=== PATIENT | female | born 1980 | race Caucasian/White ===

== ENCOUNTER 2020-03-26 23:41 | Inpatient (IN) ==
--- OUTSIDE RECORDS SUMMARY | 2020-03-26 23:45 | External Medical Summary | Continuity of Care Document ---
:1980 Author Name Jackie Baxter Address Unavailable Unavailable , Care Team Providers Name Role Phone Joaquina Kothari PA-C Unavailable [email or web address] Moreno Pink DO Unavailable [email or web address] Alfonso CULVER Unavailable Unavailable Unavailable Unavailable Unavailable Assessments Assessed Problems:Hernia, hiatalReactive airway disease Problems Plantar fasciitis (728.71) (M72.2) Heel spur (726.73) (M77.30) Esophageal reflux disease (530.81) (K21.9) Hernia, hiatal (553.3) (K44.9) Reactive airway disease (493.90) (J45.909) Chronic cough (786.2) (R05) Allergies and Adverse Reactions No Known Drug Allergies (Allergy) Latex (Allergy) Medications Flonase 50 MCG/ACT SUSP; USE 2 SPRAYS IN EACH NOSTRIL DAILY Refills: 0 Ventolin HFA AERS Refills: 0 Katlin Allergy 180 MG Oral Tablet; TAKE 1 TABLET DAILY N EEDED. Refills: 0 Gabapentin 300 MG TABS; TAKE 1 TABLET 3 TIMES DAILY. Refills: 0 Omeprazole 40 MG Oral Capsule Delayed Re lease; TAKE 1 CAPSULE Daily 1/2 hour prior to breakfast MILEY Kothari Start: 13-Mar-2015 Quantity: 30 Refills: 5 Singulair 10 MG Oral Tablet; TAKE 1 TABLET DAILY. XOCHITL Kothari 30 Tablet Bottle Quantity: 1 Refills: 3 Procedures History of Section Status: Comp leted History of Appendectomy Status: Complete d History of Total Abdominal Hysterectomy With Removal Of Both Status: Completed Ovaries History of Oral Surgery Tooth Extraction Status: Completed History of Sinus Surgery Status: Complet ed History of Neuroplasty Decompression Median Nerve At Carpal Status: Completed Tunnel Immunizations Immunizations not documented Family History Sister Family history of skin cancer (V16.8) (Z80.8) Status: Active Family history of diabetes mellitus (V18.0) (Z83.3) Status: Active uncle Family history of malignant neoplasm of prostate (V16. 42) (Z80.42) Status: Active Grandfather Family history of lung cancer (V16.1) (Z80.1) Status: Active Mother Family history of diabetes mellitus (V18.0) (Z83.3) Status: Active Grandfather Family history of diabetes mellitus (V18.0) (Z83.3) Status: Active Social History - Smoking Status Never smoked tobacco Interventions Follow-ups/ReferralsFollow-up as needed; Done: 10 Jul 2015Discussion/Summary Impressions 1. Reactive airways disorder. This most likely is exacerbated by reflux.2. GERD under good control3. ObesityPlan 1. Continue with anti-reflux regimen and institute a good exercise program and weight reduction, discussed at great length.2. Use the albuterol 2 puffs 4 times a day as needed.3. Return to see me as needed. Plan of Treatment Planned Observations Planned Goals not documented Results No Known Results Results not documented Encounters Appointment; Mika Pink DO 10-Jul-2015 11:15 Encounter Diagnosis: Problem not documented
--- OUTSIDE RECORDS SUMMARY | 2020-03-26 23:45 | External Medical Summary | Continuity of Care Document ---
:1980 Author Name Jackie Baxter Address Unavailable Unavailable , Care Team Providers Name Role Phone Joaquina Kothari PA-C Unavailable [email or web address] Moreno Pink DO Unavailable [email or web address] Alfonso CULVER Unavailable Unavailable Unavailable Unavailable Unavailable Assessments Assessed Problems:Hernia, hiatalReactive airway disease Problems Heel spur (726.73) (M77.30) Plantar fasciitis (728.71) (M72.2) Chronic cough (786.2) (R05) Esophageal reflux disease (530.81) (K21.9) Hernia, hiatal (553.3) (K44.9) Reactive airway disease (493.90) (J45.909) Allergies and Adverse Reactions No Known Drug Allergies (Allergy) Latex (Allergy) Medications Singulair 10 MG Oral Tablet; TAKE 1 TABLET DAILY. XOCHITL Kothari 30 Tablet Bottle Quantity: 1 Refills: 3 Katlin Allergy 180 MG Oral Tablet; TAKE 1 TABLET DAILY N EEDED. Refills: 0 Ventolin HFA AERS Refills: 0 Gabapentin 300 MG TABS; TAKE 1 TABLET 3 TIMES DAILY. Refills: 0 Flonase 50 MCG/ACT SUSP; USE 2 SPRAYS IN EACH NOSTRIL DAILY Refills: 0 Omeprazole 40 MG Oral Capsule Delayed Re lease; TAKE 1 CAPSULE Daily 1/2 hour prior to breakfast MILEY Kothari Start: 13-Mar-2015 Quantity: 30 Refills: 5 Procedures History of Section Status: Comp leted History of Appendectomy Status: Complete d History of Total Abdominal Hysterectomy With Removal Of Both Status: Completed Ovaries History of Oral Surgery Tooth Extraction Status: Completed History of Sinus Surgery Status: Complet ed History of Neuroplasty Decompression Median Nerve At Carpal Status: Completed Tunnel Immunizations Immunizations not documented Family History Mother Family history of diabetes mellitus (V18.0) (Z83.3) Status: Active Sister Family history of diabetes mellitus (V18.0) (Z83.3) Status: Active Family history of skin cancer (V16.8) (Z80.8) Status: Active Grandfather Family history of diabetes mellitus (V18.0) (Z83.3) Status: Active Grandfather Family history of lung cancer (V16.1) (Z80.1) Status: Active uncle Family history of malignant neoplasm of prostate (V16. 42) (Z80.42) Status: Active Social History - Smoking Status [...]
[2020-03-27] MEDS ORDERED: DEXAMETHASONE SOD INJ 10 MG/ML VIAL IV ONE (00:03)
[2020-03-27] MEDS ORDERED: ONDANSETRON INJ 2 MG/ML 2 ML VIAL IV STA (00:03)
[2020-03-27] MEDS ORDERED: ALBUTEROL HFA 8 GM INHALER INH ONE (00:03)
--- NOTE | 2020-03-27 00:25 | Emergency Department Note ---
History of Present Illness General Chief complaint: Illness Stated complaint: COVID+,VOMITING,DIARRHEA,HEADACHES,TEMP Time Seen by Provider: 03/26/20 23:50 History of Present Illness This 40-year-old presents to the ER complaining of cough, congestion, nausea, vomiting who tested positive for Covid last week Location: Generalized Quality: Achy Severity: Moderate Duration: Past week Timing: Symptom started a week ago Context: Symptoms got worse and patient came in Modifying factors: better with rest; worse with activity Patient states she also has asthma and prediabetes. Patient denies chest pain, neck stiffness, urinary symptoms. She complains of loss of taste, loss of smell, fever, chills, flulike illness. Home Medications Medication Instructions Recorded Confirmed Type albuterol sulfate 2 puff INHALATION QID PRN 03/27/20 03/27/20 History budesonide-formoterol [Symbicort] 2 puff INHALATION BID 03/27/20 03/27/20 History meloxicam 15 mg PO HS 03/27/20 03/27/20 History montelukast 10 mg PO QAM 03/27/20 03/27/20 History omeprazole 20 mg PO BID 03/27/20 03/27/20 History Allergies Allergy/AdvReac Type Severity Reaction Status Date / Time latex Allergy Unknown Rash Verified 03/27/20 01:16 dust mites Allergy Congested Uncoded 03/27/20 01:16 Past Med/Surg History Medical History Asthma Diabetes Surgical History H/O: hysterectomy Social History Smoking Status: Never smoker Feels Safe at Home: Yes Review of Systems A total of 10 systems reviewed and were otherwise negative Physical Exam Vital Signs Vital Signs - 24 hr 03/26/20 23:55 03/27/20 00:02 03/27/20 00:30 Temperature 37.1 C Temperature Source Oral Pulse Rate 92 H Respiratory Rate 17 Respiratory Effort / Characteristics Respiratory Depth Normal Blood Pressure 151/98 H Blood Pressure Mean 115 Pulse Oximetry 88 L 88 L 96 Oxygen Delivery Method Room Air Nasal Cannula Oxygen Flow Rate 0 2 Sepsis Recent Fever Within 48 Hours No Sepsis New/Unexplained Change in Mental Status No Sepsis Action Taken by Nursing No Action Required Fraction of Inspired Oxygen - Titration 2 Pulse Oximetry Post Tiitration 94 03/27/20 00:41 03/27/20 00:56 03/27/20 01:00 Temperature Temperature Source Pulse Rate 85 83 Respiratory Rate 24 24 Respiratory Effort / Characteristics Non-Labored Respiratory Depth Blood Pressure 150/93 H 161/91 H Blood Pressure Mean 102 112 Pulse Oximetry 94 96 97 Oxygen Delivery Method Nasal Cannula Nasal Cannula Oxygen Flow Rate 2 2 Sepsis Recent Fever Within 48 Hours Sepsis New/Unexplained Change in Mental Status Sepsis Action Taken by Nursing Fraction of Inspired Oxygen - Titration Pulse Oximetry Post Tiitration VITALS: Vitals are noted on the nurse's note and reviewed by myself. Vital signs hypoxic which improved on nasal cannula. GENERAL: White female mildly ill-appearing. SKIN: The skin was without rashes, erythema, edema, or bruising. There is no tenting of the skin. Capillary reflex less than 2 seconds. HEAD: Normocephalic atraumatic. EARS: External auditory canals clear, tympanic membranes pearly rush without erythema or effusion bilaterally. EYES: Pupils equal round and reactive to light and accommodation. Conjunctivae without injection, sclerae without icterus. Extraocular movements intact. NOSE: Patent, turbinates without inflammation or discharge. No sinus tenderness. MOUTH: Mucous membranes mildly dry. Pharynx without erythema or exudate. Uvula midline. Airway patent. Tongue does not deviate. NECK: Supple without nuchal rigidity. No lymphadenopathy. No thyromegaly. Cervical spine is nontender. No JVD. HEART: Regular rate and rhythm LUNGS: Mild diffuse end expiratory wheezes, No retractions or accessory muscle use. ABDOMEN: Positive bowel sounds x 4. Normal tympanic percussion. Soft, nontender, without masses or organomegaly. Jiménez sign negative. No guarding or rebound tenderness. No CVA tenderness MUSCULOSKELETAL: No muscle atrophy, erythema, or edema noted. NEURO: Patient was alert and oriented to person place and time. Normal sens ation to light and sharp touch. No focal neurological deficits. Course Administered Medications Discontinued Medications Albuterol (Albuterol Hfa 8 Gm Inhaler) 2 puffs INH NOW ONE Stop: 03/27/20 00:04 Last Admin: 03/27/20 00:44 Dose: 2 puffs Documented by: [id number] Dexamethasone (Dexamethasone Sod Inj 10 Mg/Ml Vial) 6 mg IV NOW ONE Stop: 03/27/20 00:04 Last Admin: 03/27/20 00:44 Dose: 6 mg Documented by: [id number] Ondansetron HCl (Ondansetron Inj 2 Mg/Ml 2 Ml Vial) 4 mg IV NOW STA Stop: 03/27/20 00:04 Last Admin: 03/27/20 00:43 Dose: 4 mg Documented by: [id number] Medical Decision Making Medical Records Attestation: I reviewed the patient's medical records. Home Medications Current Medication List: was personally reviewed by me Laboratory Data Attestation: I reviewed the patient's lab results. Result diagrams: 03/27/20 00:27 03/27/20 00:27 Lab Results 03/27/20 03/27/20 03/27/20 Range/Units 00:27 00:27 00:27 WBC 4.90 (4.8-10.8) K/uL RBC 5.08 (4.2-5.4) M/uL Hgb 13.4 (12.0-16.0) g/dL Hct 41.9 (37-47) % MCV 82.5 (80-100) fL MCH 26.4 (25-34) pg MCHC 32.0 (32-36) g/dL RDW Std Deviation 46.1 (36.4-46.3) fL RDW Coeff of Darren 15.1 H (11.5-14.5) % Plt Count 255 (130-400) K/uL MPV 10.4 (7.4-10.4) fL Immature Gran % (Auto) 0.2 % Neut % (Auto) 71.6 % Lymph % (Auto) 23.5 % [place] % (Auto) 4.5 % Eos % (Auto) 0.0 % Baso % (Auto) 0.2 % Neut # (Auto) 3.51 (1.4-6.5) K/uL Lymph # (Auto) 1.15 L (1.2-3.4) K/uL [place] # (Auto) 0.22 (0.11-0.59) K/uL Eos # (Auto) 0.00 (0-0.5) K/uL Baso # (Auto) 0.01 (0-0.2) K/uL Immature Gran # (Auto) 0.01 (0.00-0.02) K/uL PT 11.0 (9.0-12.0) Seconds INR 1.0 (0.9-1.1) APTT 28.4 (21.0-31.0) Seconds PTT Ratio 1.0 ABG pH ABG pCO2 ABG pO2 ABG HCO3 ABG O2 Saturation ABG Base Excess Silvano Test Barometric Pressure Oxygen Given Sodium 138 (136-145) mmol/L Potassium 3.5 (3.5-5.1) mmol/L Chloride 104 (98-107) mmol/L Carbon Dioxide 27 (21-32) mmol/L Anion Gap 7.0 (3-11) BUN 14 (7-18) mg/dl Creatinine 1.01 (0.6-1.2) mg/dl Est Cr Clr Drug Dosing 101.6 ml/min Est GFR ( Amer) 79.5 Est GFR (Non-Af Amer) 68.6 BUN/Creatinine Ratio 14.1 (10-20) Glucose 103 H (70-99) mg/dl Lactate (0.4-2.0) mmol/L Calcium 8.8 (8.5-10.1) mg/dl Magnesium 2.2 (1.8-2.4) mg/dl Total Bilirubin 0.5 (0.2-1) mg/dl AST 44 H (15-37) U/L ALT 36 (12-78) U/L Alkaline Phosphatase 101 (45-117) U/L Troponin I < 0.015 (0-0.045) ng/ml Total Protein 8.5 H (6.4-8.2) gm/dl Albumin 3.7 (3.4-5.0) gm/dl Globulin 4.8 H (2.5-4.0) gm/dl Albumin/Globulin Ratio 0.8 L (0.9-2) 03/27/20 03/27/20 Range/Units 00:27 01:04 WBC (4.8-10.8) K/uL RBC (4.2-5.4) M/uL Hgb (12.0-16.0) g/dL Hct (37-47) % MCV (80-100) fL MCH (25-34) pg MCHC (32-36) g/dL RDW Std Deviation (36.4-46.3) fL RDW Coeff of Darren (11.5-14.5) % Plt Count (130-400) K/uL MPV (7.4-10.4) fL Immature Gran % (Auto) % Neut % (Auto) % Lymph % (Auto) % [place] % (Auto) % Eos % (Auto) % Baso % (Auto) % Neut # (Auto) (1.4-6.5) K/uL Lymph # (Auto) (1.2-3.4) K/uL [place] # (Auto) (0.11-0.59) K/uL Eos # (Auto) (0-0.5) K/uL Baso # (Auto) (0-0.2) K/uL Immature Gran # (Auto) (0.00-0.02) K/uL PT (9.0-12.0) Seconds INR (0.9-1.1) APTT (21.0-31.0) Seconds PTT Ratio ABG pH Cancelled ABG pCO2 Cancelled ABG pO2 Cancelled ABG HCO3 Cancelled ABG O2 Saturation Cancelled ABG Base Excess Cancelled Silvano Test Cancelled Barometric Pressure Cancelled Oxygen Given Cancelled Sodium (136-145) mmol/L Potassium (3.5-5.1) mmol/L Chloride (98-107) mmol/L Carbon Dioxide (21-32) mmol/L Anion Gap (3-11) BUN (7-18) mg/dl Creatinine (0.6-1.2) mg/dl Est Cr Clr Drug Dosing ml/min Est GFR ( Amer) Est GFR (Non-Af Amer) BUN/Creatinine Ratio (10-20) Glucose (70-99) mg/dl Lactate 1.8 (0.4-2.0) mmol/L Calcium (8.5-10.1) mg/dl Magnesium (1.8-2.4) mg/dl Total Bilirubin (0.2-1) mg/dl AST (15-37) U/L ALT (12-78) U/L Alkaline Phosphatase (45-117) U/L Troponin I (0-0.045) ng/ml Total Protein (6.4-8.2) gm/dl Albumin (3.4-5.0) gm/dl Globulin (2.5-4.0) gm/dl Albumin/Globulin Ratio (0.9-2) Imaging Data Attestation: I personally reviewed and interpreted this imaging study as follows: MDM Narrative Prior records/ancillary studies reviewed. Triage Nursing notes reviewed. Additional history obtained from nursing. The patient's history was concerning for cold symptoms who tested positive for Covid Differential diagnosis: Etiologies such as viral syndrome, otitis, pharyngitis, pneumonia, influenza, meningitis, urinary tract infection, sepsis, bacteremia, as well as others were entertained. Physical examination: As above ER treatment provided: An order was placed for continuous cardiac monitoring. The monitor shows a rate of 60-100 with a sinus rhythm. IV fluids, Zofran, ice chips On reassessment the patient felt better. Diagnostics interpreted by me: ECG: Ordered for dyspnea EKG: Normal sinus, normal intervals, no acute ST-T wave changes. Impression normal sinus rhythm interpreted by myself I think arrhythmia is unlikely. EKG shows normal sinus rhythm with no interval abnormalities such as QT prolongation or WPW. There are no findings to suggest Brugada syndrome. Cardiac monitoring in the emergency department reveals no ta chycardic or bradycardic dysrhythmia. Hypertrophic cardiomyopathy was considered but there are no clear historical elements pointing toward this. EKG is not suggestive. The QRS voltage is not extremely large and there are no suggestive Q waves. The labs revealed no worrisome leukocytosis, negative lactic acid ABG reviewed Blood cultures pending Imaging studies: Chest x-ray concerning for bilateral patchy infiltrates concerning for Covid my interpretation. No free air or pneumothorax per my interpretation. Consultation: A consultation was placed with Dr. Howard. The case was discussed and diagnostics were reviewed. The patient was evaluated in the ER for further treatment. This appears to be consistent with Covid with low O2 sats. Medicine was consulted. Patient will be admitted. Patient's oxygen came up with nasal cannula. She was hydrated as above. She is agreeable treatment plan of admission. By the evaluation outlined above emergent etiologies such as otitis, pharyngitis, meningitis, urinary tract infection, as well as others were deemed relatively unlikely. The pt informed about the findings as listed above. All questions were answered and pleased with the treatment. The chart was completed utilizing Dragon Speech voice recognition software. Grammatical errors, random word insertions, pronoun errors, and incomplete sentences are an occassional consequence of this system due to software limitations, ambient noise, and hardware issues. Any formal questions or concerns about the content, text, or information contained within the body of this dictation should be directly addressed to the physician learning and development assistant for clarification. Impression & Plan COVID-19 virus infection Discharge Plan Visit Data Chief Complaint: Illness Stated Complaint: COVID+,VOMITING,DIARRHEA,HEADACHES,TEMP ED Provider: Jay Coats ED Midlevel Provider: Mendy Marshall Discharge Problem: COVID-19 virus infection Patient Disposition: Admitted As Inpatient Condition: Fair Forms Stand Alone Forms: [facility] [employer] Prescriptions Prescriptions: No Action meloxicam 15 mg tablet 15 mg PO HS RF: 0 omeprazole 20 mg capsule,delayed release(DR/EC) 20 mg PO BID RF: 0 montelukast 10 mg tablet 10 mg PO QAM RF: 0 albuterol sulfate 90 mcg/actuation HFA aerosol inhaler 2 puff INHALATION QID PRN (Reason: Shortness Of Breath Or Wheezing) RF: 0 budesonide-formoterol [Symbicort] 160-4.5 mcg/actuation HFA aerosol inhaler 2 puff INHALATION BID RF: 0 Referrals Referrals: Marlo Krause MD [Primary Care Provider] -
[2020-03-27 00:43] LABS: Basophils # (auto) 0.01 K/uL (0-0.2); Basophils % (auto) 0.2 %; Hematocrit (blood only) 41.9 % (37-47); Hemoglobin 13.4 g/dL (12.0-16.0); Immature Granulocytes # (auto) 0.01 K/uL (0.00-0.02); Immature Granulocytes % (auto) 0.2 %; Lymphocytes # (auto) 1.15 K/uL (1.2-3.4); Lymphocytes % (auto) 23.5 %; Mean Corpuscular Hemoglobin 26.4 pg (25-34); Mean Corpuscular Volume 82.5 fL (80-100); Mean Platelet Volume 10.4 fL (7.4-10.4); Monocytes # (auto) 0.22 K/uL (0.11-0.59); Monocytes % (auto) 4.5 %; Neutrophils # (auto) 3.51 K/uL (1.4-6.5); Neutrophils % (auto) 71.6 %; Platelet Count 255 K/uL (130-400); RDW Coefficient of Variation 15.1 % (11.5-14.5); RDW Standard Deviation 46.1 fL (36.4-46.3); Red Blood Count 5.08 M/uL (4.2-5.4)
[2020-03-27 00:53] LABS: Partial Thromboplastin Time 28.4 Seconds (21.0-31.0)
--- NOTE | 2020-03-27 00:58 | History & Physical Report ---
Date of Service March 27, 2020 Assessment & Plan (1) Acute hypoxemic respiratory failure: Secondary to severe COVID-19 pneumonia Hypertension, elevated Possible chronic BP elevation given LVH on EKG and cardiomegaly on chest x-ray DM2 diet-controlled, well-controlled as of recent outpatient hemoglobin A1c of 6.05 December 2019 Medical telemetry Supplemental O2 Decadron course Remdesivir first dose now (Patient was counseled regarding potential adverse effects from Remdesivir therapy and provided with patient education sheet.) Pulmonary consult Re: Respiratory failure, severe COVID-19 pneumonia (Patient agreeable to convalescent plasma if recommended by service.) Initiate amlodipine if BP persistently elevated Basal insulin, ISS BG goal [id number], carb count coverage DVT prophylaxis per Lovenox subcu Full code Text document was generated using Genoom voice recognition software. It may contain grammatical or spelling errors. Kindly contact undersigned for clarification of any documentation item in question. History of Present Illness Chief Complaint: Worsening shortness of breath Primary Care Provider: Marlo Krause MD History obtained from patient and records. Medical history significant for situational hypertension, DM2 diet-controlled, GERD. Last confinement 2012 under Gynecology service for endometriosis status post elective NORMA/BSO, appendectomy. 2 weeks ago, patient noted dry cough symptoms, right-sided chest tightness with fever chills, nausea, vomiting, diarrhea. No abdominal pain. No recent antibiotic Rx. 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 Positive outpatient COVID-19 test last week. Supportive management recommended at home by PCPs office. Worsening symptoms associated with shortness of breath. Patient consulted ER. IV Decadron given at the ER. Medical History as above Surgical History : Appendectomy, section, hysterectomy, adenoidectomy/sinus surgery/septoplasty Family History : Diabetes, skin cancer, asthma, dementia Personal/Social history : Non-smoker, occasional EtOH intake, hairstylist Allergies Allergy/AdvReac Type Severity Reaction Status Date / Time latex Allergy Unknown Rash Verified 03/27/20 01:16 Home Medications Medication Instructions Recorded Confirmed Type albuterol sulfate 2 puff INHALATION QID PRN 03/27/20 03/27/20 History budesonide-formoterol [Symbicort] 2 puff INHALATION BID 03/27/20 03/27/20 History meloxicam 15 mg PO HS 03/27/20 03/27/20 History montelukast 10 mg PO QAM 03/27/20 03/27/20 History omeprazole 20 mg PO BID 03/27/20 03/27/20 History Past Med/Surg History Medical History Asthma Diabetes Surgical History H/O: hysterectomy Social History Smoking Status: Never smoker Second Hand Exposure: No; Do You Dip or Chew Tobacco: No; Tobacco Cessation Education Requested by Patient: No Hx Alcohol Use: No Hx Substance Use: No Preferred Language: Mongolian Communication Ability: Effective Youth Ministry Director Required: No Beliefs That Will Affect Care: None Current Living Situation: Spouse and Family Current Living Situation Comment: Lives w/ and son Feels Safe at Home: Yes Safety Concerns: Feels Safe At This Time Assistive Devices: Oxygen - Continuous Review of Systems Review of Systems: As per HPI, all 10 systems reviewed, all other ROS negative Physical Exam Physical Exam: GENERAL: Comfortable, anxious, morbidly obese, no respiratory distress SKIN: Normal color, warm HEENT: [place] palpebral conjunctivae, no ptosis, dry buccal mucosa, nasal cannula in place NECK : Supple, short neck, no tenderness CHEST : Decreased breath sounds, no tenderness HEART : RRR, no obvious murmurs ABDOMEN: Some distention, nontender EXTREMITIES : Minimal LE swelling, no LE tenderness, no other conspicuous deformities noted NEUROLOGIC : Coherent, no facial asymmetry, no other gross focality Results & Data Results & Data ([facility]) Vital Signs (Past 12 Hours) Vital Signs Temp Pulse Resp BP Pulse Ox 03/27/20 00:56 96 03/27/20 00:30 96 03/27/20 00:02 88 L 03/26/20 23:55 37.1 C 92 H 17 151/98 H 88 L Laboratory Results 03/27/20 03/27/20 00:27 00:27 WBC 4.90 RBC 5.08 Hgb 13.4 Hct 41.9 MCV 82.5 MCH 26.4 MCHC 32.0 RDW Std Deviation 46.1 RDW Coeff of Darren 15.1 H Plt Count 255 MPV 10.4 Immature Gran % (Auto) 0.2 Neut % (Auto) 71.6 Lymph % (Auto) 23.5 [place] % (Auto) 4.5 Eos % (Auto) 0.0 Baso % (Auto) 0.2 Neut # (Auto) 3.51 Lymph # (Auto) 1.15 L [place] # (Auto) 0.22 Eos # (Auto) 0.00 Baso # (Auto) 0.01 Immature Gran # (Auto) 0.01 PT 11.0 INR 1.0 APTT 28.4 PTT Ratio 1.0 Diagnostic Findings Chest x-ray as per my interpretation cardiomegaly, interstitial infiltrates EKG as per my interpretation : Rate 80, NSR, normal axis, LVH, T wave abnormalities inferior leads
[2020-03-27 01:05] LABS: Alanine Aminotransferase 36 U/L (12-78); Albumin Level 3.7 gm/dl (3.4-5.0); Aspartate Aminotransferase 44 U/L (15-37); BUN Creatinine Ratio 14.1 (10-20); Blood Urea Nitrogen 14 mg/dl (7-18); Calcium 8.8 mg/dl (8.5-10.1); Carbon Dioxide 27 mmol/L (21-32); Chloride 104 mmol/L (98-107); Creatinine Clr Calc Pharmacy 101.6 ml/min; Est GFR (African American) 79.5; Est GFR (Non-African American) 68.6; Glucose 103 mg/dl (70-99); Magnesium 2.2 mg/dl (1.8-2.4); Potassium 3.5 mmol/L (3.5-5.1); Sodium 138 mmol/L (136-145)
[2020-03-27 01:09] LABS: Albumin Globulin Ratio 0.8 (0.9-2); Alkaline Phosphatase 101 U/L (45-117); Bilirubin,Total 0.5 mg/dl (0.2-1); Globulin 4.8 gm/dl (2.5-4.0); Total Protein 8.5 gm/dl (6.4-8.2); Troponin I < 0.015 ng/ml (0-0.045)
[2020-03-27 01:49] LABS: Appearance Urine Clear (Clear); Bacteria Urine Automated Negative (Negative); Bilirubin Urine Negative (Negative); Blood Urine 1+ (Negative); Color Urine Yellow; Glucose Urine UA Negative (Negative); Ketones Urine 2+ (Negative); Leukocyte Esterase Urine Negative (Negative); Nitrite Urine Negative (Negative); Protein Urine 2+ (Negative); RBC Urine Automated 0-4 /hpf (0-4); Specific Gravity Urine 1.015 (1.000-1.030); Urobilinogen Urine Negative (Negative)
[2020-03-27 01:56] LABS: NT Pro B Type Natriuretic Pept 92 pg/ml (0-450)
[2020-03-27] MEDS ORDERED: SODIUM CHLORIDE 0.9% 1000ML 1,000 ML IV ONE (02:10)
[2020-03-27] MEDS ORDERED: POTASSIUM CHLORIDE 40 MEQ in SODIUM CHLORIDE 0.9% 1000ML 1,000 ML IV STA (02:26)
[2020-03-27] MEDS ORDERED: traMADol HCL 50 MG TABLET PO PRN (03:09)
[2020-03-27] MEDS ORDERED: GLUCAGON FOR INJ 1 MG VIAL SQ PRN (03:09)
[2020-03-27] MEDS ORDERED: DEXTROSE 50% 50 ML SYRINGE IV PRN (03:09)
[2020-03-27] MEDS ORDERED: PROMETHAZINE HCL 12.5 MG in SODIUM CHLORIDE 0.9% 50 ML IV PRN (03:09)
[2020-03-27] MEDS ORDERED: CARBOHYDRATES FOR HYPOGLYCEMIA PO PRN (03:09)
[2020-03-27] MEDS ORDERED: GLUCOSE 10 TABS/TUBE PO PRN (03:09)
[2020-03-27] MEDS ORDERED: GLUCOSE 40% GEL 15 GM TUBE PO PRN (03:09)
[2020-03-27] MEDS: INSULIN ASPART 100 UNITS/ML 3 ML PEN SC SCH ×5 (03:50→21:25)
[2020-03-27] MEDS: amLODIPine BESYLATE 5 MG TAB PO SCH (05:20)
[2020-03-27] MEDS ORDERED: REMDESIVIR 200 MG in SODIUM CHLORIDE 0.9% 210 ML IV ONE (05:30)
[2020-03-27] MEDS ORDERED: SODIUM CHLORIDE 0.9% 10ML FLUSH IV SCH (05:30)
--- NOTE | 2020-03-27 06:56 | XRay Report ---
XR chest 1V portable CLINICAL HISTORY: SEPSIS COMPARISON STUDY: 09/23/2012 FINDINGS: The heart is mildly enlarged. There is mild interstitial thickening. There are nodular airs pace opacities within the left midlung zone peripherally. Findings are suspicious for a pneumonitis. Clinical and radiographic follow-up is recommended.[ IMPRESSION: Cardiomegaly, interstitial thickening, and nodular airspace opacities within the left mid lung zone. The findings are suspicious for a pneumonitis. Clinical and radiographic follow-up is rashaad mmended. ACT 112: Negative or not required by law. Electronically signed by: Maicol Thornton M.D. 03/27/2020 6:54 AM
[2020-03-27] MEDS: LEVALBUTEROL TARTRATE 15 GM HFA.AER.AD INH SCH ×3 (07:25→20:26)
[2020-03-27] MEDS: FLUTICASONE/VILANTEROL 100/25MCG 14 PUFFS/INHALER INH SCH (07:54)
[2020-03-27] MEDS: guaiFENesin 600 MG TABCR PO SCH ×2 (07:55→21:13)
[2020-03-27] MEDS: MONTELUKAST SODIUM 10 MG TABLET PO SCH (07:55)
[2020-03-27] MEDS: PANTOprazole 40 MG TAB PO SCH ×2 (07:55→21:13)
[2020-03-27] MEDS: ENOXAPARIN INJ 40 MG/0.4 ML SYR SQ SCH (07:55)
[2020-03-27] MEDS: INSULIN GLARGINE SOLOSTAR 100 UNITS/ML 3 ML PEN SC SCH (08:36)
--- NOTE | 2020-03-27 08:48 | Pulmonary Consultation ---
Date of Consultation March 27, 2020 Assessment & Plan (1) Acute hypoxemic respiratory failure: Impression: 40-year-old female with a Covid pneumonia and hypoxemic respiratory failure. She is appropriately been initiated on dexamethasone. Recommendations: 1. Covid pneumonia: Agree with dexamethasone per protocol. She is also been initiated on remdesivir. Given the fact that she is a week out, I am not highly suspicious that this will be markedly beneficial however it was already started by the primary care service so will defer to them. There is no indication for convalescent plasma this far out and she has relatively mild disease. 2. Hypoxemia: Continue supplemental oxygen titrated to keep saturations at or above 90%. She appears to be doing quite well on 1 to 2 L nasal cannula. No suspicion for underlying secondary infection. Wean as tolerated. 3. DVT prophylaxis recommended. 4. We would be happy to see this patient should her clinical condition worsen otherwise she appears to be managed appropriately by the hospitalist service. Pulmonary will sign off at this point time. Call us if questions. (2) COVID-19 virus infection: History of Present Illness Attending Physician: Milan Paiz MD History of Present Illness Asked by hospitalist to evaluate this patient with Covid pneumonia and hypoxemic respiratory failure. Due to Covid restrictions and in an effort to protect staff, the patient was not interviewed directly and history is obtained from review of the electronic medical record. Images were independently reviewed Patient is a 40-year-old female with history of hyperglycemia who developed dry cough right-sided chest tightness approximately 2 weeks ago. She was tested for Covid in the outpatient setting about a week ago. She had progressive shortness of breath and was evaluated in the emergency room. She received IV Decadron. She has been maintained on 1 to 2 L of supplemental oxygen and is hemodynami sd stable. She has been Allergies Allergy/AdvReac Type Severity Reaction Status Date / Time latex Allergy Unknown Rash Verified 03/27/20 01:16 Home Medications Medication Instructions Recorded Confirmed Type albuterol sulfate 2 puff INHALATION QID PRN 03/27/20 03/27/20 History budesonide-formoterol [Symbicort] 2 puff INHALATION BID 03/27/20 03/27/20 History meloxicam 15 mg PO HS 03/27/20 03/27/20 History montelukast 10 mg PO QAM 03/27/20 03/27/20 History omeprazole 20 mg PO BID 03/27/20 03/27/20 History Patient History Medical History Asthma Diabetes Surgical History H/O: hysterectomy Social History Smoking Status: Never smoker Second Hand Exposure: No; Do You Dip or Chew Tobacco: No; Tobacco Cessation Education Requested by Patient: No Hx Alcohol Use: No Hx Substance Use: No Preferred Language: Georgian Communication Ability: Effective Electrical Accessories I Assembler Required: No Beliefs That Will Affect Care: None Current Living Situation: Spouse and Family Current Living Situation Comment: Lives w/ and son Feels Safe at Home: Yes Safety Concerns: Feels Safe At This Time Assistive Devices: Oxygen - Continuous Review of Systems Review of Systems: Please refer to H&P Physical Exam Physical Exam: Exam deferred due to Covid restrictions. Please refer to H&P exam Results & Data Results & Data ([facility]) Vital Signs (Past 12 Hours) Vital Signs Temp Pulse Pulse Resp BP BP Pulse Ox 03/27/20 08:07 36.6 C 70 18 137/82 92 03/27/20 07:27 64 18 92 03/27/20 03:52 37.1 C 86 18 172/96 H 94 03/27/20 03:17 76 03/27/20 03:09 37.1 C 18 172/96 H 94 03/27/20 02:00 80 16 162/90 H 94 03/27/20 01:00 83 24 161/91 H 97 03/27/20 00:56 96 03/27/20 00:41 85 24 150/93 H 94 03/27/20 00:30 96 03/27/20 00:02 88 L 03/26/20 23:55 37.1 C 92 H 17 151/98 H 88 L Pulse Ox 03/27/20 08:07 03/27/20 07:27 03/27/20 03:52 03/27/20 03:17 03/27/20 03:09 94 03/27/20 02:00 03/27/20 01:00 03/27/20 00:56 03/27/20 00:41 03/27/20 00:30 03/27/20 00:02 03/26/20 23:55 Laboratory Results 03/27/20 00:27 03/27/20 00:27 Diagnostic Findings Imaging studies were. Chest x-ray demonstrates patchy basilar opacities with low lung volumes. PG Care Time/CCT Total # of Minutes Spent Total Time Spent with Patient: Total time spent is greater than 50% in coordination of care (as documented) at patient's floor/unit and/or counseling patient: Coding Level of Care Code 19961 Office/OBS Consult Lvl 4 Diagnoses Acute hypoxemic respiratory failure J96.01 COVID-19 virus infection U07.1 Time Spent (min) 40
[2020-03-27 13:50] LABS: Cdiff Antigen Negative; Cdiff Toxin A+B Negative Cdiff Toxin (Negative)
[2020-03-27] MEDS ORDERED: MICONAZOLE NITRATE POWDER 43 GM EXT PRN (15:13)
--- NOTE | 2020-03-27 20:28 | Hospitalist Progress Note ---
Date of Service March 27, 2020 Assessment & Plan (1) Acute hypoxemic respiratory failure: Secondary to severe COVID-19 pneumonia Chest x-ray: IMPRESSION: Cardiomegaly, interstitial thickening, and nodular airspace opacities within the left midlung zone. The findings are suspicious for a pneumonitis. Clinical and radiographic follow-up is recommended. Received with O2 saturation of 88% on room air Remdesivir and Decadron IV started day #1 Currently on 1 to 2 L of oxygen via nasal cannula Seems to be clinically improving Procalcitonin negative, antibiotics not started Compliance Examiner consulted, does not recommend convalescent plasma as patient onset of symptoms started more than a week ago Hypertension elevated on admission Symptomatic Possible chronic BP elevation given LVH on EKG and cardiomegaly on chest x-ray Continue to monitor DM2 diet-controlled, well-controlled as of recent outpatient hemoglobin A1c of 6.05 December 2019 Basal insulin, ISS BG goal [id number], carb count coverage DVT prophylaxis per Lovenox subcu Full code Disposition Anticipate discharge to home medically stable Admission and Anticipated Discharge Date Admission Date: March 27, 2020 Subjective Follow-up for Covid pneumonia Seen sitting up in bed, comfortable, not in distress, on 2 L of oxygen via nasal cannula Speaking sentences with no effort States she feels improved compared to admission No shortness of breath, has intermittent dry cough, no chest pain Appetite improving, nausea has resolved, no diarrhea Denies headache, dizziness No other symptoms Review of Systems Review of Systems: All systems reviewed & are unremarkable except as noted in Subjective Physical Exam Physical Exam: General- oriented x 3, not in distress, speaks in sentences with no effort or accessory muscle use Head- atraumatic Eyes- PERRL, EOMI, anicteric ENT- oropharynx clear Neck- supple, no JVD, no adenopathy, no thyromegaly; carotids +2/2, no bruits appreciated Lungs-diminished breath sounds but clear to auscultation bilaterally, no crackles or wheezing Heart- normal rate, regular rhythm; no murmur, no gallop, no rub appreciated Abdomen- normal bowel sounds, nondistended, soft, nontender, no masses or hepatosplenomegaly Extremities- no pretibial edema, no calf tenderness; peripheral pulses intact Neuro- alert, oriented x 3; CN 2-12 grossly intact; motor 5/5 bilaterally;sensation 100% on all extremities; no other gross focal neurologic deficits Skin- warm & dry Results & Data Results & Data ([facility]) Vital Signs (Past 12 Hours) Vital Signs Temp Pulse Pulse Resp BP Pulse Ox 03/27/20 16:48 36.8 C 65 20 140/82 94 03/27/20 15:18 64 03/27/20 13:24 76 18 95 03/27/20 10:19 37.0 C 76 18 153/88 H 90 Laboratory Results Laboratory Results - last 24 hr 03/27/20 03/27/20 03/27/20 00:27 00:27 00:27 WBC 4.90 RBC 5.08 Hgb 13.4 Hct 41.9 MCV 82.5 MCH 26.4 MCHC 32.0 RDW Std Deviation 46.1 RDW Coeff of Darren 15.1 H Plt Count 255 MPV 10.4 Immature Gran % (Auto) 0.2 Neut % (Auto) 71.6 Lymph % (Auto) 23.5 Evangeline % (Auto) 4.5 Eos % (Auto) 0.0 Baso % (Auto) 0.2 Neut # (Auto) 3.51 Lymph # (Auto) 1.15 L Evangeline # (Auto) 0.22 Eos # (Auto) 0.00 Baso # (Auto) 0.01 Immature Gran # (Auto) 0.01 ESR PT 11.0 INR 1.0 APTT 28.4 PTT Ratio 1.0 ABG pH ABG pCO2 ABG pO2 ABG HCO3 ABG O2 Saturation ABG Base Excess [place] Test Barometric Pressure Oxygen Given Sodium Potassium Chloride Carbon Dioxide Anion Gap BUN Creatinine Est Cr Clr Drug Dosing Est GFR ( Amer) Est GFR (Non-Af Amer) BUN/Creatinine Ratio Glucose POC Glucose Lactate Calcium Magnesium Total Bilirubin AST ALT Alkaline Phosphatase Troponin I C-Reactive Protein NT-Pro-B Natriuret Pep Total Protein Albumin Globulin Albumin/Globulin Ratio Procalcitonin < 0.05 Urine Color Urine Appearance Urine pH Ur Specific [place] Urine Protein Urine Glucose (UA) Urine Ketones Urine Blood Urine Nitrite Urine Bilirubin Urine Urobilinogen Ur Leukocyte Esterase Urine WBC (Auto) Urine RBC (Auto) U Hyaline Cast (Auto) U Epithel Cells (Auto) Urine Bacteria (Auto) Stl C. diff Tox B Gene Stl C.difficile Tox A&B Blood Type Antibody Screen 03/27/20 03/27/20 03/27/20 00:27 00:27 00:27 WBC RBC Hgb Hct MCV MCH MCHC RDW Std Deviation RDW Coeff of Darren Plt Count MPV Immature Gran % (Auto) Neut % (Auto) Lymph % (Auto) Evangeline % (Auto) Eos % (Auto) Baso % (Auto) Neut # (Auto) Lymph # (Auto) Evangeline # (Auto) Eos # (Auto) Baso # (Auto) Immature Gran # (Auto) ESR PT INR APTT PTT Ratio ABG pH ABG pCO2 ABG pO2 ABG HCO3 ABG O2 Saturation ABG Base Excess [place] Test Barometric Pressure Oxygen Given Sodium 138 Potassium 3.5 Chloride 104 Carbon Dioxide 27 Anion Gap 7.0 BUN 14 Creatinine 1.01 Est Cr Clr Drug Dosing 101.6 Est GFR ( Amer) 79.5 Est GFR (Non-Af Amer) 68.6 BUN/Creatinine Ratio 14.1 Glucose 103 H POC Glucose Lactate 1.8 Calcium 8.8 Magnesium 2.2 Total Bilirubin 0.5 AST 44 H ALT 36 Alkaline Phosphatase 101 Troponin I < 0.015 C-Reactive Protein 1.92 H NT-Pro-B Natriuret Pep 92 Total Protein 8.5 H Albumin 3.7 Globulin 4.8 H Albumin/Globulin Ratio 0.8 L Procalcitonin Urine Color Urine Appearance Urine pH Ur Specific [place] Urine Protein Urine Glucose (UA) Urine Ketones Urine Blood Urine Nitrite Urine Bilirubin Urine Urobilinogen Ur Leukocyte Esterase Urine WBC (Auto) Urine RBC (Auto) U Hyaline Cast (Auto) U Epithel Cells (Auto) Urine Bacteria (Auto) Stl C. diff Tox B Gene Stl C.difficile Tox A&B Blood Type Antibody Screen 03/27/20 03/27/20 03/27/20 00:51 01:04 01:40 WBC RBC Hgb Hct MCV MCH MCHC RDW Std Deviation RDW Coeff of Darren Plt Count MPV Immature Gran % (Auto) Neut % (Auto) Lymph % (Auto) Evangeline % (Auto) Eos % (Auto) Baso % (Auto) Neut # (Auto) Lymph # (Auto) Evangeline # (Auto) Eos # (Auto) Baso # (Auto) Immature Gran # (Auto) ESR PT INR APTT PTT Ratio ABG pH Cancelled ABG pCO2 Cancelled ABG pO2 Cancelled ABG HCO3 Cancelled ABG O2 Saturation Cancelled ABG Base Excess Cancelled [place] Test Cancelled Barometric Pressure Cancelled Oxygen Given Cancelled Sodium Potassium Chloride Carbon Dioxide Anion Gap BUN Creatinine Est Cr Clr Drug Dosing Est GFR ( Amer) Est GFR (Non-Af Amer) BUN/Creatinine Ratio Glucose POC Glucose Lactate Calcium Magnesium Total Bilirubin AST ALT Alkaline Phosphatase Troponin I C-Reactive Protein NT-Pro-B Natriuret Pep Total Protein Albumin Globulin Albumin/Globulin Ratio Procalcitonin Urine Color Yellow Urine Appearance Clear Urine pH 7.0 Ur Specific [place] 1.015 Urine Protein 2+ H Urine Glucose (UA) Negative Urine Ketones 2+ H Urine Blood 1+ H Urine Nitrite Negative Urine Bilirubin Negative Urine Urobilinogen Negative Ur Leukocyte Esterase Negative Urine WBC (Auto) 1-5 Urine RBC (Auto) 0-4 U Hyaline Cast (Auto) 1-5 U Epithel Cells (Auto) 10-20 H Urine Bacteria (Auto) Negative Stl C. diff Tox B Gene Stl C.difficile Tox A&B Blood Type A Positive Antibody Screen NEGATIVE 03/27/20 03/27/20 03/27/20 03:21 08:09 08:40 WBC RBC Hgb Hct MCV MCH MCHC RDW Std Deviation RDW Coeff of Darren Plt Count MPV Immature Gran % (Auto) Neut % (Auto) Lymph % (Auto) Evangeline % (Auto) Eos % (Auto) Baso % (Auto) Neut # (Auto) Lymph # (Auto) Evangeline # (Auto) Eos # (Auto) Baso # (Auto) Immature Gran # (Auto) ESR 68 H PT INR APTT PTT Ratio ABG pH ABG pCO2 ABG pO2 ABG HCO3 ABG O2 Saturation ABG Base Excess [place] Test Barometric Pressure Oxygen Given Sodium Potassium Chloride Carbon Dioxide Anion Gap BUN Creatinine Est Cr Clr Drug Dosing Est GFR ( Amer) Est GFR (Non-Af Amer) BUN/Creatinine Ratio Glucose POC Glucose 110 H 133 H Lactate Calcium Magnesium Total Bilirubin AST ALT Alkaline Phosphatase Troponin I C-Reactive Protein NT-Pro-B Natriuret Pep Total Protein Albumin Globulin Albumin/Globulin Ratio Procalcitonin Urine Color Urine Appearance Urine pH Ur Specific [place] Urine Protein Urine Glucose (UA) Urine Ketones Urine Blood Urine Nitrite Urine Bilirubin Urine Urobilinogen Ur Leukocyte Esterase Urine WBC (Auto) Urine RBC (Auto) U Hyaline Cast (Auto) U Epithel Cells (Auto) Urine Bacteria (Auto) Stl C. diff Tox B Gene Stl C.difficile Tox A&B Blood Type Antibody Screen 03/27/20 03/27/20 03/27/20 10:45 11:30 17:08 WBC RBC Hgb Hct MCV MCH MCHC RDW Std Deviation RDW Coeff of Darren Plt Count MPV Immature Gran % (Auto) Neut % (Auto) Lymph % (Auto) Evangeline % (Auto) Eos % (Auto) Baso % (Auto) Neut # (Auto) Lymph # (Auto) Evangeline # (Auto) Eos # (Auto) Baso # (Auto) Immature Gran # (Auto) ESR PT INR APTT PTT Ratio ABG pH ABG pCO2 ABG pO2 ABG HCO3 ABG O2 Saturation ABG Base Excess [place] Test Barometric Pressure Oxygen Given Sodium Potassium Chloride Carbon Dioxide Anion Gap BUN Creatinine Est Cr Clr Drug Dosing Est GFR ( Amer) Est GFR (Non-Af Amer) BUN/Creatinine Ratio Glucose POC Glucose 163 H 82 Lactate Calcium Magnesium Total Bilirubin AST ALT Alkaline Phosphatase Troponin I C-Reactive Protein NT-Pro-B Natriuret Pep Total Protein Albumin Globulin Albumin/Globulin Ratio Procalcitonin Urine Color Urine Appearance Urine pH Ur Specific [place] Urine Protein Urine Glucose (UA) Urine Ketones Urine Blood Urine Nitrite Urine Bilirubin Urine Urobilinogen Ur Leukocyte Esterase Urine WBC (Auto) Urine RBC (Auto) U Hyaline Cast (Auto) U Epithel Cells (Auto) Urine Bacteria (Auto) Stl C. diff Tox B Gene Positive Cdiff Gene H Stl C.difficile Tox A&B Negative Cdiff Toxin Blood Type Antibody Screen
[2020-03-27] MEDS: ACETAMINOPHEN 325 MG TAB PO PRN (22:29)
[2020-03-28] MEDS: BENZONATATE 100 MG CAPSULE PO PRN ×2 (00:06→23:49)
[2020-03-28] MEDS: LEVALBUTEROL TARTRATE 15 GM HFA.AER.AD INH SCH ×4 (00:22→19:26)
--- NOTE | 2020-03-28 04:47 | Electrocardiogram Report ---
Test Reason : Blood Pressure : / mmHG Vent. Rate : 079 BPM Atrial Rate : 079 BPM P-R Int : 152 ms QRS Dur : 096 ms QT Int : 368 ms P-R-T Axes : -07 -02 011 degrees QTc Int : 421 ms Normal sinus rhythm Moderate voltage criteria for LVH, may be normal variant Borderline ECG No previous ECGs available Confirmed by Pedro Joel ([id number]) on 03/28/2020 4:47:21 AM Referred By: REFERRED SELF Confirmed By:Pedro Joel
[2020-03-28 07:18] LABS: Hematocrit (blood only) 41.7 % (37-47); Hemoglobin 12.9 g/dL (12.0-16.0); Immature Granulocytes # (auto) 0.01 K/uL (0.00-0.02); Immature Granulocytes % (auto) 0.2 %; Lymphocytes # (auto) 1.39 K/uL (1.2-3.4); Lymphocytes % (auto) 32.8 %; Mean Corpuscular Hemoglobin 25.7 pg (25-34); Mean Corpuscular Hgb Conc 30.9 g/dL (32-36); Mean Corpuscular Volume 83.2 fL (80-100); Mean Platelet Volume 10.6 fL (7.4-10.4); Monocytes # (auto) 0.24 K/uL (0.11-0.59); Monocytes % (auto) 5.7 %; Neutrophils % (auto) 61.3 %; Platelet Count 217 K/uL (130-400); RDW Coefficient of Variation 15.6 % (11.5-14.5); RDW Standard Deviation 47.6 fL (36.4-46.3); Red Blood Count 5.01 M/uL (4.2-5.4); White Blood Count 4.24 K/uL (4.8-10.8)
[2020-03-28 07:29] LABS: Partial Thromboplastin Time 27.8 Seconds (21.0-31.0)
[2020-03-28 07:42] LABS: Albumin Level 3.3 gm/dl (3.4-5.0); BUN Creatinine Ratio 14.1 (10-20); Bilirubin Direct 0.1 mg/dl (0-0.2); Calcium 8.5 mg/dl (8.5-10.1); Creatinine Clr Calc Pharmacy 112.6 ml/min; Est GFR (African American) 90.2; Est GFR (Non-African American) 77.8; Potassium 3.7 mmol/L (3.5-5.1)
[2020-03-28 07:56] LABS: Bilirubin,Total 0.4 mg/dl (0.2-1); Ferritin 138.7 ng/ml (8-388); Total Protein 7.6 gm/dl (6.4-8.2)
[2020-03-28] MEDS: REMDESIVIR 100mg: Days 2-5 IV SCH (08:25)
[2020-03-28] MEDS: ENOXAPARIN INJ 40 MG/0.4 ML SYR SQ SCH (08:26)
[2020-03-28] MEDS: guaiFENesin 600 MG TABCR PO SCH ×2 (08:27→20:51)
[2020-03-28] MEDS: DEXAMETHASONE SOD PHOSPHATE 6 MG in SYRINGE 0 ML IV SCH (08:27)
[2020-03-28] MEDS: amLODIPine BESYLATE 5 MG TAB PO SCH (08:27)
[2020-03-28] MEDS: PANTOprazole 40 MG TAB PO SCH ×2 (08:27→20:51)
[2020-03-28] MEDS: FLUTICASONE/VILANTEROL 100/25MCG 14 PUFFS/INHALER INH SCH (08:27)
[2020-03-28] MEDS: MONTELUKAST SODIUM 10 MG TABLET PO SCH (08:27)
[2020-03-28] MEDS: INSULIN ASPART 100 UNITS/ML 3 ML PEN SC SCH ×4 (08:30→21:10)
[2020-03-28] MEDS: INSULIN GLARGINE SOLOSTAR 100 UNITS/ML 3 ML PEN SC SCH (08:53)
[2020-03-28] MEDS ORDERED: dexAMETHasone 6 MG in DEXTROSE 5% 25 ML IV SCH (09:00)
[2020-03-28 09:25] LABS: Estimated Average Glucose 148 mg/dl; Hemoglobin A1C 6.8 % (4.5-5.6)
[2020-03-28] MEDS: NSS 30mL Flush, Days 1-5 IV SCH (09:45)
--- NOTE | 2020-03-28 15:00 | Hospitalist Progress Note ---
Date of Service March 28, 2020 Assessment & Plan (1) Acute hypoxemic respiratory failure: Secondary to COVID-19 pneumonia Chest x-ray: IMPRESSION: Cardiomegaly, interstitial thickening, and nodular airspace opacities within the left midlung zone. The findings are suspicious for a pneumonitis. Clinical and radiographic follow-up is recommended. Requiring oxygen at 2 L/min to maintain oxygen saturation above 88% Currently on Decadron and remdesivir therapy Pulmonary recommendations noted Incentive spirometry and flutter therapy Educated on changes in position Trend inflammatory markers GI symptoms seem to have resolved Advance diet as tolerated Hypertension Elevated on admission Possible chronic BP elevation given LVH on EKG and cardiomegaly on chest x-ray Started on amlodipine 2.5 mg, now controlled. Continue to monitor DM2 diet-controlled Well-controlled as of recent outpatient hemoglobin A1c of 6.05 December 2019 Basal insulin, ISS BG goal [id number] Advance diet to heart healthy carbohydrate controlled diet DVT prophylaxis per Lovenox subcu Full code Admission and Anticipated Discharge Date Admission Date: March 27, 2020 Subjective Patient seen and examined Reports dry cough and shortness of breath associated with cough. Also reports midsternal chest tightness usually with coughing episodes. Reports nausea, vomiting and diarrhea currently resolved Denies abdominal pain, fevers, chills Denies any dysuria, frequency, urgency Denies any headache, dizziness Reports weakness Physical Exam Constitutional: + well hydrated and + obese; no acute distress Eyes: PERRL, conjunctivae normal, anicteric sclerae ENMT: external ear and nose normal, oropharynx normal Respiratory: Not in respiratory distress, on nasal cannula 2L/min Diminished breath sounds No crackles or wheeze Cardiovascular: RRR, no murmur, no edema Gastrointestinal (Abdomen): normal bowel sounds, soft, nontender, no hepatosplenomegaly Musculoskeletal: no cyanosis or clubbing, extremities motor strength 5/5 Neurologic: PERRL, EOMI, accommodation nl, no face palsy, no dysarthria Psychiatric: A+Ox3, euthymic affect Results & Data Results & Data ([facility]) Vital Signs (Past 12 Hours) Vital Signs Temp Pulse Pulse Resp BP Pulse Ox Pulse Ox 03/28/20 14:23 37.7 C H 70 18 133/82 91 03/28/20 13:45 71 18 93 03/28/20 12:11 20 91 03/28/20 12:09 37.2 C 64 22 130/85 89 L 03/28/20 08:01 36.6 C 57 L 18 136/77 93 03/28/20 07:35 57 L 18 95 03/28/20 07:32 53 L 03/28/20 07:30 95 03/28/20 04:00 36.7 C 51 L 18 112/76 95 Laboratory Results Laboratory Results - last 24 hr 03/27/20 03/27/20 03/28/20 17:08 20:59 06:24 WBC 4.24 L RBC 5.01 Hgb 12.9 Hct 41.7 MCV 83.2 MCH 25.7 MCHC 30.9 L RDW Std Deviation 47.6 H RDW Coeff of Darren 15.6 H Plt Count 217 MPV 10.6 H Immature Gran % (Auto) 0.2 Neut % (Auto) 61.3 Lymph % (Auto) 32.8 Faulkner % (Auto) 5.7 Eos % (Auto) 0.0 Baso % (Auto) 0.0 Neut # (Auto) 2.60 Lymph # (Auto) 1.39 [place] # (Auto) 0.24 Eos # (Auto) 0.00 Baso # (Auto) 0.00 Immature Gran # (Auto) 0.01 APTT PTT Ratio Sodium Potassium Chloride Carbon Dioxide Anion Gap BUN Creatinine Est Cr Clr Drug Dosing Est GFR ( Amer) Est GFR (Non-Af Amer) BUN/Creatinine Ratio Glucose POC Glucose 82 85 Estimat Average Glucose Hemoglobin A1c Calcium Ferritin Total Bilirubin Direct Bilirubin AST ALT Alkaline Phosphatase Lactate Dehydrogenase Total Creatine Kinase Total Protein Albumin 03/28/20 03/28/20 03/28/20 06:24 06:24 06:24 WBC RBC Hgb Hct MCV MCH MCHC RDW Std Deviation RDW Coeff of Darren Plt Count MPV Immature Gran % (Auto) Neut % (Auto) Lymph % (Auto) [place] % (Auto) Eos % (Auto) Baso % (Auto) Neut # (Auto) Lymph # (Auto) [place] # (Auto) Eos # (Auto) Baso # (Auto) Immature Gran # (Auto) APTT 27.8 PTT Ratio 1.0 Sodium 140 Potassium 3.7 Chloride 108 H Carbon Dioxide 29 Anion Gap 3.0 BUN 13 Creatinine 0.91 Est Cr Clr Drug Dosing 112.6 Est GFR ( Amer) 90.2 Est GFR (Non-Af Amer) 77.8 BUN/Creatinine Ratio 14.1 Glucose 99 POC Glucose Estimat Average Glucose Hemoglobin A1c Calcium 8.5 Ferritin 138.7 Total Bilirubin 0.4 Direct Bilirubin 0.1 AST 37 ALT 34 Alkaline Phosphatase 91 Lactate Dehydrogenase 356 H Total Creatine Kinase 1013 H Total Protein 7.6 Albumin 3.3 L 03/28/20 03/28/20 03/28/20 06:24 07:50 12:06 WBC RBC Hgb Hct MCV MCH MCHC RDW Std Deviation RDW Coeff of Darren Plt Count MPV Immature Gran % (Auto) Neut % (Auto) Lymph % (Auto) [place] % (Auto) Eos % (Auto) Baso % (Auto) Neut # (Auto) Lymph # (Auto) [place] # (Auto) Eos # (Auto) Baso # (Auto) Immature Gran # (Auto) APTT PTT Ratio Sodium Potassium Chloride Carbon Dioxide Anion Gap BUN Creatinine Est Cr Clr Drug Dosing Est GFR ( Amer) Est GFR (Non-Af Amer) BUN/Creatinine Ratio Glucose POC Glucose 95 96 Estimat Average Glucose 148 Hemoglobin A1c 6.8 H Calcium Ferritin Total Bilirubin Direct Bilirubin AST ALT Alkaline Phosphatase Lactate Dehydrogenase Total Creatine Kinase Total Protein Albumin
[2020-03-29] MEDS: LEVALBUTEROL TARTRATE 15 GM HFA.AER.AD INH SCH ×2 (00:32→07:34)
[2020-03-29 05:49] LABS: Hemoglobin 12.3 g/dL (12.0-16.0); Mean Corpuscular Hemoglobin 25.8 pg (25-34); Mean Corpuscular Hgb Conc 31.5 g/dL (32-36); Mean Corpuscular Volume 81.9 fL (80-100); Mean Platelet Volume 10.5 fL (7.4-10.4); Platelet Count 228 K/uL (130-400); RDW Coefficient of Variation 15.2 % (11.5-14.5); RDW Standard Deviation 45.8 fL (36.4-46.3); Red Blood Count 4.76 M/uL (4.2-5.4); White Blood Count 4.14 K/uL (4.8-10.8)
[2020-03-29 06:13] LABS: Albumin Level 3.1 gm/dl (3.4-5.0); Creatinine Clr Calc Pharmacy 150.7 ml/min; Est GFR (Non-African American) 107.9; Potassium 3.2 mmol/L (3.5-5.1)
[2020-03-29 06:18] LABS: Albumin Globulin Ratio 0.8 (0.9-2); Bilirubin,Total 0.4 mg/dl (0.2-1); C Reactive Protein 1.7 mg/dl (0-0.29); Globulin 4.1 gm/dl (2.5-4.0); Total Protein 7.2 gm/dl (6.4-8.2)
[2020-03-29 06:19] LABS: D Dimer 360 ug/L FEU (0-500)
[2020-03-29] MEDS: FLUTICASONE/VILANTEROL 100/25MCG 14 PUFFS/INHALER INH SCH (07:45)
[2020-03-29] MEDS: BENZONATATE 100 MG CAPSULE PO PRN (07:47)
[2020-03-29] MEDS: PANTOprazole 40 MG TAB PO SCH ×2 (07:47→21:01)
[2020-03-29] MEDS: guaiFENesin 600 MG TABCR PO SCH ×2 (07:47→21:01)
[2020-03-29] MEDS: amLODIPine BESYLATE 5 MG TAB PO SCH (07:48)
[2020-03-29] MEDS: MONTELUKAST SODIUM 10 MG TABLET PO SCH (07:48)
[2020-03-29] MEDS: ENOXAPARIN INJ 40 MG/0.4 ML SYR SQ SCH (07:49)
[2020-03-29] MEDS: DEXAMETHASONE SOD PHOSPHATE 6 MG in SYRINGE 0 ML IV SCH (07:50)
[2020-03-29] MEDS: ACETAMINOPHEN 325 MG TAB PO PRN ×2 (07:52→17:48)
[2020-03-29] MEDS: REMDESIVIR 100mg: Days 2-5 IV SCH (07:52)
[2020-03-29] MEDS ORDERED: LEVALBUTEROL TARTRATE 15 GM HFA.AER.AD INH PRN (09:12)
[2020-03-29] MEDS: NSS 30mL Flush, Days 1-5 IV SCH (09:17)
[2020-03-29] MEDS: INSULIN GLARGINE SOLOSTAR 100 UNITS/ML 3 ML PEN SC SCH (09:41)
[2020-03-29] MEDS: INSULIN ASPART 100 UNITS/ML 3 ML PEN SC SCH ×4 (09:42→22:04)
--- NOTE | 2020-03-29 13:08 | Hospitalist Progress Note ---
Date of Service March 29, 2020 Assessment & Plan (1) Acute hypoxemic respiratory failure: Secondary to COVID-19 pneumonia Chest x-ray: IMPRESSION: Cardiomegaly, interstitial thickening, and nodular airspace opacities within the left midlung zone. The findings are suspicious for a pneumonitis. Clinical and radiographic follow-up is recommended. Requiring oxygen at 2 L/min to maintain oxygen saturation above 88% Currently on Decadron and remdesivir therapy Pulmonary recommendations noted Continue Incentive spirometry and flutter therapy Continue to wean oxygen as tolerated Trend inflammatory markers. CRP 1.92-->1.7 Advance diet from soft to regular carb controlled heart healthy diet Patient has been bradycardic mostly in 50s-60s Telemetry show sinus mary in 50s. Patient is obese. Will need sleep study outpatient eventually to assess for sleep disordered breathing Hypertension Elevated on admission Possible chronic BP elevation given LVH on EKG and cardiomegaly on chest x-ray Started on amlodipine 2.5 mg, now controlled. Continue to monitor DM2 diet-controlled Well-controlled as of recent outpatient hemoglobin A1c of 6.05 December 2019 Basal insulin, ISS BG goal [id number] DVT prophylaxis per Lovenox subcu Full code Admission and Anticipated Discharge Date Admission Date: March 27, 2020 Subjective Patient seen and examined Still reports dry cough Reports nausea, vomiting and diarrhea completely resolved Tolerating soft diet well Denied chest pain today Reports mild headache. No dizziness. Physical Exam Constitutional: + well hydrated and + obese; no acute distress Eyes: PERRL, conjunctivae normal, anicteric sclerae ENMT: external ear and nose normal, oropharynx normal Respiratory: normal respiratory effort, lungs clear to auscultation Cardiovascular: Rate/Rhythm: regular rhythm and + bradycardic S1 S2. NO pedal edema Gastrointestinal (Abdomen): normal bowel sounds, soft, nontender, no hepatosplenomegaly Musculoskeletal: no cyanosis or clubbing, extremities motor strength 5/5 Neurologic: PERRL, EOMI, accommodation nl, no face palsy, no dysarthria Psychiatric: A+Ox3, euthymic affect Results & Data Results & Data ([facility]) Vital Signs (Past 12 Hours) Vital Signs Temp Pulse Pulse Resp BP Pulse Ox 03/29/20 11:53 36.9 C 53 L 18 130/80 92 03/29/20 07:34 57 L 18 93 03/29/20 07:30 49 L 03/29/20 07:16 37.1 C 57 L 20 125/85 94 03/29/20 04:00 36.7 C 62 18 146/87 H 92 Laboratory Results Laboratory Results - last 24 hr 03/28/20 03/28/20 03/29/20 16:23 20:50 05:33 WBC 4.14 L RBC 4.76 Hgb 12.3 Hct 39.0 MCV 81.9 MCH 25.8 MCHC 31.5 L RDW Std Deviation 45.8 RDW Coeff of Darren 15.2 H Plt Count 228 MPV 10.5 H D-Dimer Sodium Potassium Chloride Carbon Dioxide Anion Gap BUN Creatinine Est Cr Clr Drug Dosing Est GFR ( Amer) Est GFR (Non-Af Amer) BUN/Creatinine Ratio Glucose POC Glucose 113 H 99 Calcium Ferritin Total Bilirubin AST ALT Alkaline Phosphatase C-Reactive Protein Total Protein Albumin Globulin Albumin/Globulin Ratio Procalcitonin 03/29/20 03/29/20 03/29/20 05:33 05:33 05:33 WBC RBC Hgb Hct MCV MCH MCHC RDW Std Deviation RDW Coeff of Darren Plt Count MPV D-Dimer 360 Sodium 140 Potassium 3.2 L Chloride 108 H Carbon Dioxide 28 Anion Gap 4.0 BUN 14 Creatinine 0.68 Est Cr Clr Drug Dosing 150.7 Est GFR ( Amer) 125.0 Est GFR (Non-Af Amer) 107.9 BUN/Creatinine Ratio 20.0 Glucose 114 H POC Glucose Calcium 8.0 L Ferritin 107.0 Total Bilirubin 0.4 AST 24 ALT 32 Alkaline Phosphatase 82 C-Reactive Protein 1.70 H Total Protein 7.2 Albumin 3.1 L Globulin 4.1 H Albumin/Globulin Ratio 0.8 L Procalcitonin < 0.05 03/29/20 03/29/20 07:13 11:51 WBC RBC Hgb Hct MCV MCH MCHC RDW Std Deviation RDW Coeff of Darren Plt Count MPV D-Dimer Sodium Potassium Chloride Carbon Dioxide Anion Gap BUN Creatinine Est Cr Clr Drug Dosing Est GFR ( Amer) Est GFR (Non-Af Amer) BUN/Creatinine Ratio Glucose POC Glucose 108 H 131 H Calcium Ferritin Total Bilirubin AST ALT Alkaline Phosphatase C-Reactive Protein Total Protein Albumin Globulin Albumin/Globulin Ratio Procalcitonin
[2020-03-29] MEDS ORDERED: POTASSIUM CHLORIDE PWD 20 MEQ PACK PO ONE (13:44)
[2020-03-30] MEDS: BENZONATATE 100 MG CAPSULE PO PRN (01:02)
[2020-03-30 06:44] LABS: Hematocrit (blood only) 41.5 % (37-47); Hemoglobin 12.9 g/dL (12.0-16.0); Mean Corpuscular Hemoglobin 25.8 pg (25-34); Mean Corpuscular Hgb Conc 31.1 g/dL (32-36); Mean Platelet Volume 12.1 fL (7.4-10.4); Platelet Count 205 K/uL (130-400); RDW Coefficient of Variation 15.4 % (11.5-14.5); RDW Standard Deviation 47.1 fL (36.4-46.3); White Blood Count 4.98 K/uL (4.8-10.8)
[2020-03-30 07:09] LABS: Albumin Level 3.1 gm/dl (3.4-5.0); BUN Creatinine Ratio 22.7 (10-20); Calcium 8.3 mg/dl (8.5-10.1); Creatinine Clr Calc Pharmacy 131.6 ml/min; Est GFR (African American) 115.8; Est GFR (Non-African American) 99.9; Potassium 3.5 mmol/L (3.5-5.1)
[2020-03-30 07:11] LABS: Albumin Globulin Ratio 0.7 (0.9-2); Bilirubin,Total 0.4 mg/dl (0.2-1); Globulin 4.2 gm/dl (2.5-4.0); Total Protein 7.3 gm/dl (6.4-8.2)
[2020-03-30] MEDS: INSULIN ASPART 100 UNITS/ML 3 ML PEN SC SCH ×4 (08:05→20:53)
[2020-03-30] MEDS: INSULIN GLARGINE SOLOSTAR 100 UNITS/ML 3 ML PEN SC SCH (08:06)
[2020-03-30] MEDS: DEXAMETHASONE SOD PHOSPHATE 6 MG in SYRINGE 0 ML IV SCH (08:47)
[2020-03-30] MEDS: REMDESIVIR 100mg: Days 2-5 IV SCH (08:47)
[2020-03-30] MEDS: amLODIPine BESYLATE 5 MG TAB PO SCH (08:48)
[2020-03-30] MEDS: ENOXAPARIN INJ 40 MG/0.4 ML SYR SQ SCH (08:48)
[2020-03-30] MEDS: FLUTICASONE/VILANTEROL 100/25MCG 14 PUFFS/INHALER INH SCH (08:49)
[2020-03-30] MEDS: guaiFENesin 600 MG TABCR PO SCH ×2 (08:50→20:40)
[2020-03-30] MEDS: PANTOprazole 40 MG TAB PO SCH ×2 (08:50→20:40)
--- NOTE | 2020-03-30 11:19 | Hospitalist Progress Note ---
Date of Service March 30, 2020 Assessment & Plan (1) Acute hypoxemic respiratory failure: Secondary to COVID-19 pneumonia Chest x-ray: IMPRESSION: Cardiomegaly, interstitial thickening, and nodular airspace opacities within the left midlung zone. The findings are suspicious for a pneumonitis. Clinical and radiographic follow-up is recommended. Currently on Decadron and remdesivir therapy Still requiring nasal oxygen. Has been stable on 2 L/min. We will plan to wean down and possibly off oxygen today Continue Incentive spirometry and flutter therapy GI symptoms completely resolved Patient has been bradycardic mostly in 50s-60s Will need sleep study outpatient eventually to assess for sleep disordered breathing Plan to do ambulatory pulse ox in the morning Hypertension Elevated on admission Possible chronic BP elevation given LVH on EKG and cardiomegaly on chest x-ray Started on amlodipine 2.5 mg, now controlled. Continue to monitor DM2 diet-controlled Well-controlled as of recent outpatient hemoglobin A1c of 6.05 December 2019 Basal insulin, ISS BG goal [id number] DVT prophylaxis per Lovenox subcu Full code Admission and Anticipated Discharge Date Admission Date: March 27, 2020 Subjective Patient seen and examined this morning. Still reports generalized weakness Continues to have persistent cough. Reports no shortness of breath today No fevers, chills, nausea vomiting No diarrhea or abdominal pain No chest pain Physical Exam Constitutional: + well hydrated and + obese; no acute distress Eyes: PERRL, conjunctivae normal, anicteric sclerae ENMT: external ear and nose normal, oropharynx normal Respiratory: normal respiratory effort; no respiratory distress Ausc ultation: + diminished lung sounds (lung bases); no crackles and no wheezes Cardiovascular: Rate/Rhythm: regular rhythm and + bradycardic S1 S2 Gastrointestinal (Abdomen): normal bowel sounds, soft, nontender, no hepatosplenomegaly Musculoskeletal: no cyanosis or clubbing, extremities motor strength 5/5 Neurologic: PERRL, EOMI, accommodation nl, no face palsy, no dysarthria Psychiatric: A+Ox3, euthymic affect Results & Data Results & Data ([facility]) Vital Signs (Past 12 Hours) Vital Signs Temp Pulse Pulse Resp BP Pulse Ox 03/30/20 08:15 36.6 C 18 139/85 94 03/30/20 07:16 48 L 03/30/20 04:00 36.7 C 46 L 20 115/74 93 03/30/20 01:04 27.3 C L 57 L 18 132/82 94 Laboratory Results Laboratory Results - last 24 hr 03/29/20 03/29/20 03/30/20 16:33 21:00 06:30 WBC RBC Hgb Hct MCV MCH MCHC RDW Std Deviation RDW Coeff of Darren Plt Count MPV Sodium 140 Potassium 3.5 Chloride 108 H Carbon Dioxide 27 Anion Gap 5.0 BUN 17 Creatinine 0.74 Est Cr Clr Drug Dosing 131.6 Est GFR ( Amer) 115.8 Est GFR (Non-Af Amer) 99.9 BUN/Creatinine Ratio 22.7 H Glucose 98 POC Glucose 142 H 103 H Calcium 8.3 L Total Bilirubin 0.4 AST 23 ALT 31 Alkaline Phosphatase 83 Total Protein 7.3 Albumin 3.1 L Globulin 4.2 H Albumin/Globulin Ratio 0.7 L 03/30/20 03/30/20 03/30/20 06:30 07:55 11:59 WBC 4.98 RBC 5.00 Hgb 12.9 Hct 41.5 MCV 83.0 MCH 25.8 MCHC 31.1 L RDW Std Deviation 47.1 H RDW Coeff of Darren 15.4 H Plt Count 205 MPV 12.1 H Sodium Potassium Chloride Carbon Dioxide Anion Gap BUN Creatinine Est Cr Clr Drug Dosing Est GFR ( Amer) Est GFR (Non-Af Amer) BUN/Creatinine Ratio Glucose POC Glucose 89 127 H Calcium Total Bilirubin AST ALT Alkaline Phosphatase Total Protein Albumin Globulin Albumin/Globulin Ratio
[2020-03-30] MEDS: NSS 30mL Flush, Days 1-5 IV SCH (12:02)
[2020-03-30] MEDS: MONTELUKAST SODIUM 10 MG TABLET PO SCH (12:03)
[2020-03-31 08:31] LABS: Hematocrit (blood only) 43.1 % (37-47); Hemoglobin 13.8 g/dL (12.0-16.0); Mean Corpuscular Hemoglobin 26.2 pg (25-34); Mean Corpuscular Volume 81.8 fL (80-100); Mean Platelet Volume 10.9 fL (7.4-10.4); Platelet Count 280 K/uL (130-400); RDW Coefficient of Variation 15.4 % (11.5-14.5); RDW Standard Deviation 45.9 fL (36.4-46.3); Red Blood Count 5.27 M/uL (4.2-5.4); White Blood Count 7.08 K/uL (4.8-10.8)
[2020-03-31 08:50] LABS: Albumin Level 3.4 gm/dl (3.4-5.0); BUN Creatinine Ratio 22.5 (10-20); Calcium 8.9 mg/dl (8.5-10.1); Creatinine Clr Calc Pharmacy 109.4 ml/min; Est GFR (African American) 92.7; Est GFR (Non-African American) 79.9; Potassium 3.3 mmol/L (3.5-5.1)
[2020-03-31 08:53] LABS: Albumin Globulin Ratio 0.8 (0.9-2); Bilirubin,Total 0.4 mg/dl (0.2-1); C Reactive Protein 0.39 mg/dl (0-0.29); Globulin 4.5 gm/dl (2.5-4.0); Total Protein 7.9 gm/dl (6.4-8.2)
[2020-03-31] MEDS: REMDESIVIR 100mg: Days 2-5 IV SCH (08:55)
[2020-03-31] MEDS: DEXAMETHASONE SOD PHOSPHATE 6 MG in SYRINGE 0 ML IV SCH (08:56)
[2020-03-31] MEDS: FLUTICASONE/VILANTEROL 100/25MCG 14 PUFFS/INHALER INH SCH (08:56)
[2020-03-31] MEDS: ENOXAPARIN INJ 40 MG/0.4 ML SYR SQ SCH (08:58)
[2020-03-31] MEDS: amLODIPine BESYLATE 5 MG TAB PO SCH (08:59)
[2020-03-31] MEDS: MONTELUKAST SODIUM 10 MG TABLET PO SCH (08:59)
[2020-03-31] MEDS: guaiFENesin 600 MG TABCR PO SCH (08:59)
[2020-03-31] MEDS: PANTOprazole 40 MG TAB PO SCH (08:59)
[2020-03-31] MEDS: INSULIN GLARGINE SOLOSTAR 100 UNITS/ML 3 ML PEN SC SCH (09:21)
[2020-03-31] MEDS: INSULIN ASPART 100 UNITS/ML 3 ML PEN SC SCH ×2 (09:21→12:41)
[2020-03-31] MEDS: BENZONATATE 100 MG CAPSULE PO PRN (10:45)
[2020-03-31] MEDS: NSS 30mL Flush, Days 1-5 IV SCH (10:45)
--- NOTE | 2020-03-31 12:47 | Hospitalist Progress Note ---
Date of Service March 31, 2020 Assessment & Plan Admission and Anticipated Discharge Date Admission Date: March 27, 2020 Results & Data Results & Data ([facility]) Vital Signs (Past 12 Hours) Vital Signs Temp Pulse Pulse Pulse Pulse Pulse Resp 03/31/20 11:22 36.5 C 63 18 03/31/20 11:10 36.6 C 51 L 17 03/31/20 08:43 76 75 60 03/31/20 08:14 03/31/20 07:47 48 L 03/31/20 07:38 36.6 C 51 L 17 03/31/20 04:07 36.8 C 54 L 16 Resp Resp Resp BP Pulse Ox Pulse Ox Pulse Ox 03/31/20 11:22 128/85 92 03/31/20 11:10 142/74 H 91 03/31/20 08:43 21 19 18 92 95 03/31/20 08:14 91 03/31/20 07:47 03/31/20 07:38 142/74 H 98 03/31/20 04:07 123/79 93 Pulse Ox 03/31/20 11:22 03/31/20 11:10 03/31/20 08:43 94 03/31/20 08:14 03/31/20 07:47 03/31/20 07:38 03/31/20 04:07
--- NOTE | 2020-03-31 13:03 | Discharge Summary ---
Date of Service March 31, 2020 Admission HPI Per Admitting Provider History obtained from patient and records. Medical history significant for situational hypertension, DM2 diet-controlled, GERD. Last confinement 2012 under Gynecology service for endometriosis status post elective NORMA/BSO, appendectomy. 2 weeks ago, patient noted dry cough symptoms, right-sided chest tightness with fever chills, nausea, vomiting, diarrhea. No abdominal pain. No recent antibiotic Rx. 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 Positive outpatient COVID-19 test last week. Supportive management recommended at home by PCPs office. Worsening symptoms associated with shortness of breath. Patient consulted ER. IV Decadron given at the ER. Medical History as above Surgical History : Appendectomy, section, hysterectomy, adenoidec farrah/sinus surgery/septoplasty Family History : Diabetes, skin cancer, asthma, dementia Personal/Social history : Non-smoker, occasional EtOH intake, hairstylist Admission Exam Per Admitting Provider GENERAL: Comfortable, anxious, morbidly obese, no respiratory distress SKIN: Normal color, warm HEENT: [place] palpebral conjunctivae, no ptosis, dry buccal mucosa, nasal cannula in place NECK : Supple, short neck, no tenderness CHEST : Decreased breath sounds, no tenderness HEART : RRR, no obvious murmurs ABDOMEN: Some distention, nontender EXTREMITIES : Minimal LE swelling, no LE tenderness, no other conspicuous deformities noted NEUROLOGIC : Coherent, no facial asymmetry, no other gross focality Principal Diagnosis Acute hypoxic respiratory failure COVID 19 Pneumonia Hypertension Bradycardia Discharge Exam Constitutional + well hydrated and + obese; no acute distress Eyes PERRL, conjunctivae normal, anicteric sclerae ENMT external ear and nose normal, oropharynx normal Respiratory normal respiratory effort, lungs clear to auscultation normal respiratory effort; no respiratory distress Auscultation: + diminished lung sounds (lung bases); no crackles and no wheezes Cardiovascular Rate/Rhythm: regular rate and regular rhythm Extremities: no edema S1 S2 Gastrointestinal (Abdomen) normal bowel sounds, soft, nontender, no hepatosplenomegaly Musculoskeletal no cyanosis or clubbing, extremities motor strength 5/5 Neurologic PERRL, EOMI, accommodation nl, no face palsy, no dysarthria Psychiatric A+Ox3, euthymic affect Discharge Data Allergies Allergy/AdvReac Type Severity Reaction Status Date / Time latex Allergy Unknown Rash Verified 03/27/20 01:16 Consultations 03/27/20 02:32 ED Decision to Admit Stat 03/27/20 03:09 Consult Pulmonology Routine Hospital Course (1) Acute hypoxemic respiratory failure: Secondary to COVID-19 pneumonia Chest x-ray: IMPRESSION: Cardiomegaly, interstitial thickening, and nodular airspace opacities within the left midlung zone. The findings are suspicious for a pneumonitis. Clinical and radiographic follow-up is recommended. Treated with dexamethasone and remdesivir Required nasal oxygen initially This was gradually weaned off Patient's symptoms improved GI symptoms resolved Ambulatory pulse ox today on room air was normal. No need for oxygen on discharge Provided patient with COVID 19 home isolation instructions Hypertension Elevated during hospitalization Possible chronic BP elevation given LVH on EKG and cardiomegaly on chest x-ray Started on amlodipine 2.5 mg, now controlled. Provided education about this. Discharged on amlodipine. To follow up with PCP for continued management Patient had asymptomatic sinus bradycardic episodes to low 50s and a few times to 40s while hospitalized. Recommend further evaluation including sleep study when fully recovered DM2 diet-controlled Well-controlled as of recent outpatient hemoglobin A1c of 6.05 December 2019 Patient will benefit from weight loss measures Total Time Total Time Spent Total Time Spent (In Minutes): 40 Total Time Includes: Examination of the Patient, Discharge Planning and Medication Reconciliation Discharge Plan Discharge Items Patient Disposition: Home - Self-Care Reason For Visit: Worsening shortness of breath and cough Discharge Diagnosis: Acute hypoxic respiratory failure COVID 19 Pneumonia Hypertension Bradycardia Condition on Discharge: Fair Activity: Resume your previous activity Non-emergency contact: Primary Care Provider Call non-emergency contact if: you have any medication questions and your symptoms worsen Follow-up/Referrals: Marlo Krause MD [Primary Care Provider] - Diet: Carb Consistent or DM2 and Heart Healthy Addtl Attending Provider Instructions: Ms Westfall. You came to the hospital complaining of worsening cough, shortness of breath, nasuea and diarrhea. You were evaluated and treated for COVID 19 pneumonia. You required oxygen. Your symptoms improved and you were successfully weaned off oxygen. You still need to complete remaining doses of dexamethasone at home. Please follow home quarantine instructions as discussed and detailed below. You were also noted to have high blood pressure and your heart rate occasionally runs low. You were started on a medication for blood pressure called amlodipine. It is very important that you follow up with your Primary Doctor in 2 weeks for continued management. It is also important that you get a sleep study as we discussed. It was a pleasure taking care of you. Home Isolation COVID-19 Instructions The following information about Home Isolation is from the CDC Website: https://www.cdc.gov/coronavirus/2019-ncov/hcp/tgxmapaj-xbvoclw-stukfj.html Stay home except to get medical care People who are mildly ill with COVID-19 are able to isolate at home during their illness. You should restrict activities outside your home, except for getting medical care. Do not go to work, school, or public areas. Avoid using public transportation, ride-sharing, or taxis. Separate yourself from other people and animals in your home People: As much as possible, you should stay in a specific room and away from other people in your home. Also, you should use a separate bathroom, if available. Animals: You should restrict contact with pets and other animals while you are sick with COVID-19, just like you would around other people. Although there have not been reports of pets or other animals becoming sick with COVID-19, it is still recommended that people sick with COVID-19 limit contact with animals until more information is known about the virus. When possible, have another member of your household care for your animals while you are sick. If you are sick with COVID-19, avoid contact with your pet, including petting, snuggling, being kissed or licked, and sharing food. If you must care for your pet or be around animals while you are sick, wash your hands before and after you interact with pets and wear a face mask. Call ahead before visiting your doctor If you have a medical appointment, call the healthcare provider and tell them that you have or may have COVID-19. This will help the healthcare providers office take steps to keep other people from getting infected or exposed. Wear a face mask You should wear a face mask when you are around other people (e.g., sharing a room or vehicle) or pets and before you enter a healthcare providers office. If you are not able to wear a face mask (for example, because it causes trouble b reathing), then people who live with you should not stay in the same room with you, or they should wear a face mask if they enter your room. Cover your coughs and sneezes Cover your mouth and nose with a tissue when you cough or sneeze. Throw used tissues in a lined trash can. Immediately wash your hands with soap and water for at least 20 seconds or, if soap and water are not available, clean your hands with an alcohol-based hand advanced practice nurse that contains at least 60% alcohol. Clean your hands often Wash your hands often with soap and water for at least 20 seconds, especially after blowing your nose, coughing, or sneezing; going to the bathroom; and before eating or preparing food. If soap and water are not readily available, use an alcohol-based hand advanced practice nurse with at least 60% alcohol, covering all surfaces of your hands and rubbing them together until they feel dry. Soap and water are the best option if hands are visibly dirty. Avoid touching your eyes, nose, and mouth with unwashed hands. Avoid sharing personal household items You should not share dishes, drinking glasses, cups, eating utensils, towels, or bedding with other people or pets in your home. After using these items, they should be washed thoroughly with soap and water. Clean all high-touch surfaces everyday High touch surfaces include counters, tabletops, doorknobs, bathroom fixtures, toilets, phones, keyboards, tablets, and bedside tables. Also, clean any surfaces that may have blood, stool, or body fluids on them. Use a household cleaning spray or wipe, according to the label instructions. Labels contain instructions for safe and effective use of the cleaning product including precautions you should take when applying the product, such as wearing gloves and making sure you have good ventilation during use of the product. Monitor your symptoms Seek prompt medical attention if your illness is worsening (e.g., difficulty breathing).Beforeseeking care, call your healthcare provider and tell them that you have, or are being evaluated for, COVID-19. Put on a face mask before you enter the facility. These steps will help the healthcare providers office to keep other people in the office or waiting room from getting infected or exposed. Ask your healthcare provider to call the local or [facility] health department. Persons who are placed under active monitoring or facilitated self- monitoring should follow instructions provided by their local health department or occupational health professionals, as appropriate. When working with your local health department check their available hours. If you have a medical emergency and need to call 911, notify the dispatch personnel that you have, or are being evaluated for COVID-19. If possible, put on a face mask before emergency medical services arrive. Discontinuing home isolation Patients with confirmed COVID-19 should remain under home isolation precautions until the risk of secondary transmission to others is thought to be low. The decision to discontinue home isolation precautions should be made on a [id number] basis, in consultation with healthcare providers and state and local health departments. Pending Studies at Discharge: No Stand-Alone Forms: [facility] [employer], Smoking Cessation Medications and DC Order Prescriptions: New acetaminophen 325 mg Tablet 650 mg PO Q4H PRN (Reason: pain) Qty: 50 RF: 0 amlodipine [Norvasc] 5 mg Tablet 2.5 mg PO QAM 30 Days Qty: 15 RF: 0 guaifenesin [Mucinex] 600 mg Tablet Extended Release 12hr 600 mg PO Q12 7 Days Qty: 14 RF: 0 dexamethasone 6 mg tablet 6 mg PO DAILY 5 Days Qty: 5 RF: 0 Continued omeprazole 20 mg capsule,delayed release(DR/EC) 20 mg PO BID RF: 0 montelukast 10 mg tablet 10 mg PO QAM RF: 0 albuterol sulfate 90 mcg/actuation HFA aerosol inhaler 2 puff INHALATION QID PRN (Reason: Shortness Of Breath Or Wheezing) RF: 0 budesonide-formoterol [Symbicort] 160-4.5 mcg/actuation HFA aerosol inhaler 2 puff INHALATION BID RF: 0 Discontinued meloxicam 15 mg tablet 15 mg PO HS RF: 0 Discharge Orders: Discharge Order (Routine); Ordered 03/31/20 Ordered By: Yoon Hernandez/Other Patient Handouts: A1C Admission Data Admit Date/Time: 03/27/20 01:36 Attending Provider: Yoon Rosas I. Admit Provider: Sukh Howard Primary Care Provider: Marlo Krause Other Providers: Joe Donahue ; Damon Brewer ; Tg Kothari ; Sathya Morales ; Sukh Fisher ; Valentin Kurtz ; Moises Fulton ; Lisa Rollins ; Opal Rico ; Sukh Howard ; Milan Paiz Other Interventions: Discharge Summary Assessment (RN) Last Done: 03/31/20 11:10
== END 2020-03-31 14:11 | disposition home or self-care (01) | DRG 177 ==
LOC: ED 23:41 → 2N 03-27 01:36 → SUATTDRO 03-27 01:36 → 2N 03-27 02:31